=== PATIENT | female | born 1955 | race Caucasian/White ===

== ENCOUNTER → 2016-08-08 | Day surgery (SDC) | payer OTHER ==
--- NOTE | 2016-08-09 13:39 | PATH ---
Cytology Non-Gynecological Report Patient Name: SONY CLAIRE [facility]. Rec. #: [id number] /Age/Gender: 1955 (Age: 61) / F Account: [id number] Location: RADIOLOGY Taken: 08/08/2016 Received: 08/08/2016 Reported: 08/09/2016 Physicians: Jimmy Griffin M.D. Specimen(s) Received LEFT THYROID FNA Clinical History Left thyroid nodule, 1.64 x 1.08 x 1.36 cm Final Diagnosis THYROID GLAND, LEFT LOBE, US GUIDED FINE ASPIRATION BIOPSY: SATISFACTORY FOR EVALUATION. NO MALIGNANCY WAS IDENTIFIED. SCATTERED CLUSTERS OF BLAND APPEARING FOLLICULAR EPITHELIAL CELLS, SUGGESTIVE OF NODULAR GOITER (BETHESDA CATEGORY II, BENIGN), SEE COMMENT. Comment: The smears show scattered clusters of bland appearing follicular epithelial cells some with Hurthle cell (oncocytic) change. Colloid is present. Electronically Signed Dmitriy Freeman M.D. Gross Description Received are four air dried smears, three smears in 95% alcohol, and 20 cc of bloody fluid in formalin. Four diff-quik stained slides, three Pap stained slides and one cell block are made.
== END | disposition home or self-care (01) ==
LOC: JRADIR 08:24
PROVIDERS: ATTEND Internal Medicine Endocrinology, Diabetes & Metabolism
PROC: 0G9G3ZX Drainage of Left Thyroid Gland Lobe, Percutaneous Approach, Diagnostic (ICD-10-PCS; principal; 2016-08-08)
PROC: BG44ZZZ Ultrasonography of Thyroid Gland (ICD-10-PCS; 2016-08-08)
DX: E04.1 Nontoxic single thyroid nodule (principal)
CPT/HCPCS: 10022; 76536-TC; 76942; 88173; 88305-TC

== ENCOUNTER 2016-08-18 22:27 | Emergency (ER) | payer OTHER ==
[2016-08-18 22:35] VITALS: TEMP 97.8; BMI 36.0
[2016-08-18] MEDS ORDERED: ACETAMINOPHEN 1000 MG/100 ML VIAL (NON FORMULARY) IVPB ONE (23:23)
--- NOTE | 2016-08-18 23:29 | PDOC ---
History of Present Illness - History of Present Illness Initial Comments: 08/18/16 23:58 Patient is a 61 year old female with significant medical hx of DM, HTN, HLD, obstructive sleep apnea, hypothyroidism, and cervical arthritis who is presenting to the ED with one week of intermittent chest pain, shortness of breath, and neck pain. Patient complains of intermittent chest pain that comes on for a few seconds at a time and is characterized as sharp. Her shortness of breath accompanies her chest pain but only occurs on occasion. The patient notes that her symptoms are not exertional. The patient also complains of bilateral paracervical spinal neck pain with radiation to her posterior head. The patient reports that her pain worsens with movement of her neck; she has been taking Tylenol with reported pain relief. Patient also complains of three days of increasing edema to her hands and lower extremities bilaterally. The patient recently saw her PMD and was started on 20 mg of Lasix. The patient denies fever, chills, nausea, vomiting, cough, diaphoresis, and difficulty urinating. <Daisha Whitmore - Last Filed: 08/19/16 01:26> - General History Source: Patient, Old Records Exam Limitations: No Limitations <Hunter Brooks - Last Filed: 08/19/16 01:58> - General Chief Complaint: Headache Stated Complaint: NAUSEA/HEADACHES Time Seen by Provider: 08/18/16 22:57 Past History <Daisha Whitmore - Last Filed: 08/19/16 01:26> - Past Medical History Anemia: No Asthma: No Cancer: No Cardiac Disorders: No CVA: No COPD: No CHF: No Dementia: No Diabetes: Yes (NIDDM) GI Disorders: No Disorders: Yes (STRESS INCONTINENCE) HTN: Yes Hypercholesterolemia: Yes Liver Disease: No Psychiatric Problems: Yes (Depression) Suicide Attempt (Hx): No Seizures: No Thyroid Disease: Yes (HYPOTHYROID) - Surgical History Abdominal Surgery: No Appendectomy: Yes Cardiac Surgery: No Cholecystectomy: No Lung Surgery: No Neurologic Surgery: No Orthopedic Surgery: No - Immunization History Immunization Up to Date: Yes - Psycho/Social/Smoking Cessation Hx Anxiety: Yes Suicidal Ideation: No Smoking Status: No Smoking History: Never smoked Have you smoked in the past 12 months: No Number of Cigarettes Smoked Daily: 0 Hx Alcohol Use: No Drug/Substance Use Hx: No Substance Use Type: None Hx Substance Use Treatment: No <Hunter Brooks - Last Filed: 08/19/16 01:58> - Past Medical History Allergies/Adverse Reactions: Allergies Allergy/AdvReac Type Severity Reaction Status Date / Time No Allergy Information Allergy Verified 08/18/16 22:33 Available Home Medications: Ambulatory Orders Meclizine HCl [Antivert -] 12.5 mg PO HS PRN 11/24/13 Diazepam [Valium] 5 mg PO TID PRN #6 tablet 08/13/15 Levothyroxine [Synthroid -] 50 mcg PO DAILY 08/13/15 Losartan 50Mg/Hctz 12.5MG [Hyzaar -] 1 tab PO DAILY 08/13/15 Metformin HCl 500 mg PO DAILY 08/13/15 Cyclobenzaprine HCl [Flexeril -] 10 mg PO TID #21 tablet 03/13/16 Ibuprofen [Motrin -] 600 mg PO TID #21 tablet 03/13/16 Review of Systems - Review of Systems Comments:: 08/18/16 23:59 GENERAL/CONSTITUTIONAL: No fever or chills. No weakness. HEAD, EYES, EARS, NOSE AND THROAT: No change in vision. No ear pain or discharge. No sore throat. CARDIOVASCULAR: Chest pain and shortness of breath. RESPIRATORY: No cough, wheezing, or hemoptysis. GASTROINTESTINAL: No nausea, vomiting, diarrhea or constipation. GENITOURINARY: No dysuria, frequency, or change in urination. MUSCULOSKELETAL: Neck pain, lower extremity swelling, hand swelling. No back pain. SKIN: No rash NEUROLOGIC: No headache, vertigo, loss of consciousness, or change in strength/ sensation. <Daisha Whitmore - Last Filed: 08/19/16 01:26> *Physical Exam - Vital Signs Last Vital Signs Temp Pulse Resp BP Pulse Ox 97.8 F 83 16 143/86 97 08/18/16 22:33 08/18/16 22:33 08/18/16 22:33 08/18/16 22:33 08/18/16 22:33 - Physical Exam Comments: 08/19/16 00:00 GENERAL: Awake, alert, and fully oriented, in no acute distress HEAD: No signs of trauma EYES: PERRLA, EOMI, sclera anicteric, conjunctiva clear ENT: Auricles normal inspection, hearing grossly normal, nares patent, oropharynx clear without exudates. Moist mucosa NECK: Normal ROM, supple, no lymphadenopathy, JVD, or masses LUNGS: Breath sounds equal, clear to auscultation bilaterally. No wheezes, and no crackles HEART: Regular rate and rhythm, normal S1 and S2, no murmurs, rubs or gallops ABDOMEN: Soft, nontender, normoactive bowel sounds. No guarding, no rebound. No masses EXTREMITIES: Trace pedal edema bilaterally and trace edema upper extremities to the hands. Normal range of motion. No clubbing or cyanosis. No cords, erythema, or tenderness MUSCULOSKELETAL: Reproducible tenderness on palpation to the bilateral paraspinal cervical muscles. NEUROLOGICAL: Cranial nerves II through XII grossly intact. Normal speech, normal gait SKIN: Warm, Dry, normal turgor, no rashes or lesions noted. ENDOCRINE: No increased thirst. No abnormal weight change. HEMATOLOGIC/LYMPHATIC: No anemia, easy bleeding, or history of blood clots. ALLERGIC/IMMUNOLOGIC: No hives or skin allergy. <Daisha Whitmore - Last Filed: 08/19/16 01:26> - Vital Signs Last Vital Signs Temp Pulse Resp BP Pulse Ox 97.8 F 83 16 143/86 97 08/18/16 22:33 08/18/16 22:33 08/18/16 22:33 08/18/16 22:33 08/18/16 22:33 <Hunter Brooks - Last Filed: 08/19/16 01:58> Heart Score/ECG Review - History History: Slightly suspicious - Electrocardiogram EKG: Non specific repolarization disturbance - Age Age: 45-65 - Risk Factors Based on the list above the patient has:: >/=3 risk factors or Hx atherosclerotic disease - Troponin Troponin: </= normal limit - Score Heart Score - Total: 4 #1 ECG reviewed & interpreted by me at: 01:30 08/19/16 01:35 NSR 62, 1st degree AV block, LVH, left axis deviation, no std/caroline, QTC 434 msec , unchanged from prior ECG <Hunter Brooks - Last Filed: 08/19/16 01:58> ED Treatment Course - LABORATORY CBC & Chemistry Diagram: 08/18/16 23:50 08/18/16 23:50 - RADIOLOGY Radiograph Interpretation: 08/19/16 01:26 Bellows Tester: ([email or web address]) Report Date: 08/19/2016 00:05:00 Report Status: Preliminary Begin of Report Content Referring Physician: Hunter Brooks Patient Name: Lisa Rush THIS IS A PRELIMINARY REPORT FROM IMAGING [facility]RAW[facility] EXAM: X-ray chest IMAGES: 2 INDICATION: Intermittent chest pain DATE OF SERVICE: 2016-08-19 00:05:46.0 COMPARISON: none FINDINGS: There is mild left ventricular hypertrophy. Lungs are clear. No pleural effusion. IMPRESSION: Mild left ventricular hypertrophy. THIS DOCUMENT HAS BEEN ELECTRONICALLY SIGNED Alireza Ramirez MD 08/19/2016 01:11 CHRIS Marquez Please call Imaging Pmo Project Manager [phone] ([phone]) with questions. End of Report Content <Daisha Whitmore - Last Filed: 08/19/16 01:26> - LABORATORY CBC & Chemistry Diagram: 08/18/16 23:50 08/18/16 23:50 - RADIOLOGY Radiology Studies Ordered: Category Date Time Status CHEST X-RAY PORTABLE* [RAD] Stat Radiology 08/18/16 23:23 Ordered <Hunter Brooks - Last Filed: 08/19/16 01:58> Medical Decision Making - Medical Decision Making 08/18/16 23:28 A portion of this note was documented by [employer] under my direction. I have reviewed the details of the note, within reason, and agree with the documentation with the following case summary and management plan written by me. Patient treated in the ED. Nursing notes are reviewed and incorporated into the medical decision-making. Vital signs reviewed. Peripheral IV access obtained by the nurse, laboratory studies are drawn and sent, reviewed and interpreted by myself. Vital Signs Temp Pulse Resp BP Pulse Ox 97.8 F 83 16 143/86 97 08/18/16 22:33 08/18/16 22:33 08/18/16 22:33 08/18/16 22:33 08/18/16 22:33 61 year old male with past medical history of hypertension, diabetes, hyperlipidemia, depression, arthritis of the neck and hypothyroidism presents to the emergency department for similar symptoms as an March 2016. The patient has had approximately one week of few seconds of intermittent sharp chest pain with occasional shortness of breath. She has reproducible bilateral paracervical spinal neck pain that radiates to her posterior head. Patient reports that this feels somewhat like her migraines but worsened with flexion and movement of her neck. She has been taking Tylenol which relieves the pain. The symptoms are not exertional. She has noticed in last 3 days that her lower extremities were getting more edematous as well as her hands. She has saw her PMD Dr. Alexandre started her on 20 mg of Lasix. She is unsure if this is improved her symptoms. She denies any fevers or chills or cough or vomiting. The patient's chest pain is very atypical for acute coronary syndrome. We'll however obtain a chest x-ray, EKG, labs, troponin and BNP. I suspect that this is more muscular skeletal given the reproducible nature of the neck and chest discomfort. We'll give IV Tylenol and reassess. I have very little concerns for acute intracranial pathology. Will defer on head CT at this time. 08/19/16 01:35 Chest xray reviewed by me and imaging traditional maori health practitioner, mild left ventricular hypertrophy. CBC, BMP 08/18/16 23:50 08/18/16 23:50 CMP Sodium 141 mmol/L (136-145) 08/18/16 23:50 Potassium 4.4 mmol/L (3.5-5.1) 08/18/16 23:50 Chloride 103 mmol/L (98-107) 08/18/16 23:50 Carbon Dioxide 26 mmol/L (21-32) 08/18/16 23:50 Anion Gap 12 (8-16) 08/18/16 23:50 BUN 12 mg/dL (7-18) 08/18/16 23:50 Creatinine 0.8 mg/dL (0.55-1.02) 08/18/16 23:50 Creat Clearance w eGFR > 60 (>60) 08/18/16 23:50 Random Glucose 145 mg/dL (74-106) H D 08/18/16 23:50 Calcium 8.9 mg/dL (8.5-10.1) 08/18/16 23:50 Total Bilirubin 0.7 mg/dL (0.2-1.0) D 08/18/16 23:50 AST 35 U/L (15-37) D 08/18/16 23:50 ALT 31 U/L (12-78) 08/18/16 23:50 Alkaline Phosphatase 97 U/L (45-117) 08/18/16 23:50 Creatine Kinase 300 IU/L (26-192) H D 08/18/16 23:50 CK-MB (CK-2) 2.266 ng/ml (0.5-3.6) 08/18/16 23:50 Troponin I < 0.02 ng/ml (0.00-0.05) 08/18/16 23:50 B-Natriuretic Peptide 12.46 pg/ml (5-125) 08/18/16 23:50 Total Protein 7.7 g/dl (6.4-8.2) 08/18/16 23:50 Albumin 3.9 g/dl (3.4-5.0) 08/18/16 23:50 Labs reviewed. Unremarkable. Patient feels reassured. Will give a copy of her labs. I still suspect atypical chest pain and MSK pain. Supportive care and follow up with [facility] physician. I discussed the physical exam findings, ancillary test results and final diagnoses with the patient. I answered all of the patient's questions. The patient was satisfied with the care received and felt comfortable with the discharge plan and treatment plan. The patient will call their primary care physician within 24 hours to arrange follow-up and will return to the Emergency Department with any new, persistant or worsening symptoms. <Hunter Brooks - Last Filed: 08/19/16 01:58> *DC/Admit/Observation/Transfer - Attestations Scribe Attestion: 08/19/16 00:01 Documentation prepared by Daisha Whitmore, acting as medical billing specialist for Hunter Brooks MD. <Daisha Whitmore - Last Filed: 08/19/16 01:26> - Discharge Dispostion Admit: No <Hunter Brooks - Last Filed: 08/19/16 01:58> Diagnosis at time of Disposition: Atypical chest pain, Neck pain - Discharge Dispostion Disposition: HOME Condition at time of disposition: Improved - Referrals Referrals: Felicita Harrington MD [Primary Care Provider] - - Patient Instructions Printed Discharge Instructions: DI for Atypical Chest Pain, DI for Neck Pain Additional Instructions: Take 650 mg tylenol every 4 hours as needed for pain. Please follow up with your doctor. Please make sure you get your echocardiogram.
[2016-08-18] MEDS ORDERED: ACETAMINOPHEN INJECTION 100 ML IVPB ONE (23:31)
[2016-08-19 00:06] LABS: BASOPHIL 1.3 % (0-2.0); EOSINOPHIL 3.5 % (0-4.5); MCH 27.4 pg (25.7-33.7); MCHC 33.5 g/dl (32.0-36.0); MEAN CELL VOLUME 81.8 fl (80-96); MEAN PLT VOLUME 8.9 fl (7.5-11.1); PLATELET COUNT 326 K/MM3 (134-434); RDW 14.4 % (11.6-15.6); WHITE BLOOD COUNT 9.1 K/mm3 (4.0-10.0)
[2016-08-19 00:27] LABS: ALBUMIN 3.9 g/dl (3.4-5.0); ANION GAP 12 (8-16); BILIRUBIN,TOTAL 0.7 mg/dL (0.2-1.0); CALCIUM 8.9 mg/dL (8.5-10.1); CO2 26 mmol/L (21-32); CREATININE 0.8 mg/dL (0.55-1.02); GLUCOSE,RANDOM 145 mg/dL (74-106); SGPT/ALT 31 U/L (12-78); TOT PROT 7.7 g/dl (6.4-8.2)
[2016-08-19 00:30] LABS: ALK PHOS 97 U/L (45-117); TROPONIN I < 0.02 ng/ml (0.00-0.05)
[2016-08-19 00:32] LABS: PLATELET COMMENT2 NO CLOTTING DETECTED; PLATELET COMMENT3 MOD LARGE PLTS; PLATELET ESTIMATE ADEQUATE (NORMAL)
[2016-08-19 00:33] LABS: SGOT/AST 35 U/L (15-37)
[2016-08-19] MEDS ORDERED: KETOROLAC TROMETHAMINE 30 MG/1 ML VIAL IVPUSH ONE (01:03)
[2016-08-19] MEDS ORDERED: KETOROLAC TROMETHAMINE 30 MG/1 ML VIAL ONE (01:14)
[2016-08-19] MEDS ORDERED: LORAZEPAM CARPU-JECT 2 MG/ML DISP.SYRIN IVPUSH ONE (01:37)
[2016-08-19 03:14] VITALS: BP 138/79; PULSE 81
--- NOTE | 2016-08-19 09:35 | EKG ---
Test Reason : Blood Pressure : / mmHG Vent. Rate : 062 BPM Atrial Rate : 062 BPM P-R Int : 200 ms QRS Dur : 132 ms QT Int : 428 ms P-R-T Axes : 025 -56 032 degrees QTc Int : 434 ms NORMAL SINUS RHYTHM LEFT AXIS DEVIATION LEFT VENTRICULAR HYPERTROPHY WITH QRS WIDENING CANNOT RULE OUT SEPTAL INFARCT (CITED ON OR BEFORE 21-MAR-2015) ABNORMAL ECG WHEN COMPARED WITH ECG OF 13-MAR-2016 12:14, NO SIGNIFICANT CHANGE WAS FOUND Confirmed by JA LI MD ([id number]) on 08/19/2016 9:35:13 AM Referred By: Confirmed By:JA LI MD
== END 2016-08-19 03:13 | disposition home or self-care (01) ==
LOC: JER 22:27
PROC: 3E033NZ Introduction of Analgesics, Hypnotics, Sedatives into Peripheral Vein, Percutaneous Approach (ICD-10-PCS; principal; 2016-08-18)
PROC: 3E0333Z Introduction of Anti-inflammatory into Peripheral Vein, Percutaneous Approach (ICD-10-PCS; 2016-08-18)
DX: M54.2 Cervicalgia (principal); M47.812 Spondylosis without myelopathy or radiculopathy, cervical region; I10 Essential (primary) hypertension; E11.9 Type 2 diabetes mellitus without complications; Z79.84 Long term (current) use of oral hypoglycemic drugs; D32.9 Benign neoplasm of meninges, unspecified; E78.00 Pure hypercholesterolemia, unspecified
CPT/HCPCS: 36415; 80053; 82550; 82553; 83880; 84484; 85025; 93005; 93010; 99283-25

== ENCOUNTER 2017-04-07 11:46 | Emergency (ER) | payer OTHER ==
[2017-04-07 12:08] VITALS: BMI 34.9
--- NOTE | 2017-04-07 13:05 | PDOC ---
Attending Attestation - Resident Resident Name: Tutu Villar - ED Attending Attestation I have performed the following: I have examined & evaluated the patient, The case was reviewed & discussed with the resident, I agree w/resident's findings & plan, Exceptions are as noted - HPI HPI: 04/07/17 13:07 62y F htn, hl presents with abdominal pain and vomiting. Abd pain x 15 days, s/ p outpatient US that was unremarkable. Pain persistent christiano tmoved to the lower abdomen associated with 1 episode of nbnb vomiting today. prior history of UTIs. abd pain is diffuse, nonradiating. denies any urinary sypmtoms. + hysterectomy, oopherectomy. exam noted for diffuse abd tenderness zayda in the lower abd w/o rebound/guarding differential includes possible UTI, consider possible obstruction, consider acs - will obtain ekg, trop woill obtain blood work, ua, will treat sypmtatically if persistent pain consider CT - Physicial Exam PE: 04/09/17 14:57 see above - Medical Decision Making 04/07/17 17:[address] results 04/07/17 19:03 ct negative for acute pathology pt discharged with pmd fu reutrn precautions were discussed Heart Score/ECG Review - ECG Impressions Comment:: 04/07/17 15:08 Twelve-lead EKG was performed and reviewed by me. There is normal sinus rhythm with a normal rate. rate of 69 Left axis deviation abnormal r wave progression
[2017-04-07] MEDS ORDERED: FAMOTIDINE 20 MG/50 ML IVPB 50 ML IVPB ONE ×2 (13:12→13:16)
[2017-04-07] MEDS ORDERED: ONDANSETRON 4 MG/2 ML VIAL IVPUSH ONE (13:12)
[2017-04-07] MEDS ORDERED: SODIUM CHLORIDE 1,000 ML IV STA (13:12)
[2017-04-07] MEDS ORDERED: ONDANSETRON 4 MG/2 ML VIAL ONE (13:15)
[2017-04-07 13:28] LABS: URINE APPEARANCE SLCLOUDY; URINE BILIRUBIN NEGATIVE (NEGATIVE); URINE BLOOD NEGATIVE (NEGATIVE); URINE COLOR YELLOW; URINE GLUCOSE (UA) NEGATIVE (NEGATIVE); URINE KETONE TRACE (NEGATIVE); URINE NITRITE NEGATIVE (NEGATIVE); URINE UROBILINOGEN NEGATIVE mg/dL (0.2-1.0)
[2017-04-07 13:29] LABS: BASOPHIL 0.9 % (0-2.0); EOSINOPHIL 0.7 % (0-4.5); MCH 26.9 pg (25.7-33.7); MCHC 32.9 g/dl (32.0-36.0); MEAN CELL VOLUME 81.8 fl (80-96); MEAN PLT VOLUME 8.8 fl (7.5-11.1); NEUTROPHILS 72.8 % (42.8-82.8); PLATELET COUNT 268 K/MM3 (134-434); RDW 14.4 % (11.6-15.6); URINE PROTEIN 1+ (NEGATIVE); WHITE BLOOD COUNT 6.2 K/mm3 (4.0-10.0)
--- NOTE | 2017-04-07 13:36 | PDOC ---
History of Present Illness - General Chief Complaint: Pain, Acute Stated Complaint: VOMITING Time Seen by Provider: 04/07/17 12:27 - History of Present Illness Initial Comments: 04/07/17 13:44 The patient is a 62 year old female with a history of DM, HTN, HLD, obstructive sleep apnea, hypothyroidism, and cervical arthritis who presents for evaluation of abdominal pain, nausea, and vomiting. The patient reports a several week history of poorly described upper abdominal pain for which she presented to her primary care provider. She had a gallbladder performed which did not show any evidence of cholecystitis or gallstones. She states that she began experiencing poorly described sharp lower abdominal pain today as well as 1 episode of non-bilious, non-bloody vomiting prompting her presentation to the ED today. She denies fevers, chill, chest pain, SOB, or changes with urination or bowel movements. She reports a history of a hysterectomy, oopherectomy, and bladder lift as well. Past History - Past Medical History Allergies/Adverse Reactions: Allergies Allergy/AdvReac Type Severity Reaction Status Date / Time No Allergy Information Allergy Verified 04/07/17 12:08 Available Home Medications: Ambulatory Orders Levothyroxine [Synthroid -] 50 mcg PO DAILY 08/13/15 Losartan 50Mg/Hctz 12.5MG [Hyzaar -] 1 tab PO DAILY 08/13/15 Metformin HCl 500 mg PO DAILY 08/13/15 Ibuprofen [Motrin -] 600 mg PO TID #21 tablet 03/13/16 Anemia: No Asthma: No Cancer: No Cardiac Disorders: No CVA: No COPD: No CHF: No Dementia: No Diabetes: Yes (NIDDM) GI Disorders: No Disorders: Yes (STRESS INCONTINENCE) HTN: Yes Hypercholesterolemia: Yes Liver Disease: No Psychiatric Problems: Yes (Depression) Seizures: No Thyroid Disease: Yes (HYPOTHYROID) - Surgical History Abdominal Surgery: No Appendectomy: Yes Cardiac Surgery: No Cholecystectomy: No Lung Surgery: No Neurologic Surgery: No Orthopedic Surgery: No - Immunization History Immunization Up to Date: Yes - Suicide/Smoking/Psychosocial Hx Smoking Status: No Smoking History: Never smoked Have you smoked in the past 12 months: No Number of Cigarettes Smoked Daily: 0 Hx Alcohol Use: No Drug/Substance Use Hx: No Substance Use Type: None Hx Substance Use Treatment: No Review of Systems - Review of Systems Comments:: 04/07/17 13:50 Constitutional: No fevers, chills, fatigue, malaise HEENT: No Rhinorrhea, nasal congestion, Cardiovascular: No chest pain, syncope, palpitations, lightheadedness Respiratory: No Cough, SOB, Hemoptysis, Gastrointestinal: Abdominal pain, nausea, vomiting. No Constipation, Diarrhea, Melena Genitourinary: No Dysuria, Frequency, Urgency, Hesitancy, Hematuria, Flank pain Musculoskeletal: No Myalgia, arthralgia Skin: No rashes, bruising, pallor Neurologic: Headache. No Dizziness, Numbness, Weakness, or Tingling Psychiatric: No Hallucinations. No SI or HI *Physical Exam - Vital Signs Last Vital Signs Temp Pulse Resp BP Pulse Ox 98.1 F 82 16 132/80 97 04/07/17 12:06 04/07/17 12:06 04/07/17 12:06 04/07/17 12:06 04/07/17 12:06 - Physical Exam Comments: 04/07/17 13:52 General Appearance: Nourished. No Apparent Distress HEENT: EOMI, ANSON. No Pharyngeal Erythema, Tonsillar Exudate, Tonsillar Erythema Neck: No Cervical Lymphadenopathy Respiratory/Chest: Lungs Clear, Normal Breath Sounds. No Crackles, Rales, Rhonchi, Wheezing Cardiovascular: Regular Rhythm, Regular Rate. No Murmur, Gallops, Rubs Gastrointestinal/Abdominal: Normal Bowel Sounds, Soft. Diffuse tenderness to palpation. No Guarding, Rebound, Musculoskeletal: No CVA Tenderness Extremity: Normal Capillary Refill Integumentary: Normal Color, Dry, Warm Neurologic: Fully Oriented, Alert, Normal Mood/Affect, Normal Response, ED Treatment Course - LABORATORY CBC & Chemistry Diagram: 04/07/17 13:12 04/07/17 14:13 - ADDITIONAL ORDERS Additional order review: Laboratory Results 04/07/17 13:12 Urine Color Yellow Urine Appearance Slcloudy Urine pH 5.0 D Ur Specific [place] 1.020 Urine Protein 1+ H Urine Glucose (UA) Negative Urine Ketones Trace H Urine Blood Negative Urine Nitrite Negative Urine Bilirubin Negative Urine Urobilinogen Negative - RADIOLOGY Radiology Studies Ordered: Category Date Time Status ABDOMEN & PELVIS CT WITH CONTR [CT] Stat CT Scan 04/07/17 13:12 Ordered - Medications Given in the ED: ED Medications Discontinued Medications Generic Name Dose Route Start Last Admin Trade Name Freq PRN Reason Stop Dose Admin Ondansetron HCl 4 mg 04/07/17 13:12 04/07/17 13:23 Zofran Injection IVPUSH 04/07/17 13:13 4 mg ONCE ONE Administration Medical Decision Making - Medical Decision Making 04/07/17 13:53 The patient is a 62 year old female with a history of DM, HTN, HLD, obstructive sleep apnea, hypothyroidism, and cervical arthritis who presents for evaluation of abdominal pain, nausea, and vomiting. Differential includes but is not limited to: Gastritis, pancreatitis, colitis, acs, obstruction, cholecystits, infectious, metabolic derangement. Given the patient's negative gallbladder US , it is unlikely her symptoms are due to a cholecystits. The patient appears fairly clinically well making us less concerned for obstruction, however reasonable to evaluate for given her history of abdominal surgery and vomiting. Her symptoms are likely due to a gastritis or UTI given her diffuse symptoms. We will obtain a cbc, cmp, troponin, UA, lipase for further evaluation. We will also obtain a ct abdomen/pelvis to evaluate for other etiologies. We will continue to monitor and reassess. 04/07/17 18:48 cbc, cmp, troponin, UA and lipase are unremarkable. The patient reports significant improvement in her symptoms. She is pending official ct abdomen/ pelvis read. She will likely be discharged home after ct read given her significant improvement in her symptoms and normal lab values with pcp follow up. 04/07/17 18:53 CT abdomen is negative for acute processes as read by our radiologist. We discussed the results with the patient and are comfortable discharging her at this time with pcp follow up. The patient voiced understanding and is agreeable with the plan. *DC/Admit/Observation/Transfer Diagnosis at time of Disposition: Gastritis Qualifiers: Gastritis type: unspecified gastritis Chronicity: unspecified Gastritis bleeding: presence of bleeding unspecified Qualified Code(s): K29.70 - Gastritis , unspecified, without bleeding - Discharge Dispostion Disposition: HOME Condition at time of disposition: Improved Admit: No - Referrals Referrals: Felicita Harrington MD [Primary Care Provider] - - Patient Instructions Printed Discharge Instructions: DI for Gastritis Additional Instructions: Please return to the ER if you experience concerning or worsening symptoms including fevers, chills, vomiting, or worsening abdominal pain. Your lab results were normal here in the ER. Your symptoms are likely due to gastritis. Please call to schedule a follow up appointment with your primary care provider in 4-5 days to discuss your ER visit.
[2017-04-07 13:45] LABS: INR 1.05 (0.82-1.09); PROTHROMBIN TIME (PATIENT) 11.9 SEC (9.98-11.88)
[2017-04-07 13:47] LABS: ACTIVATED PTT 29.5 SECONDS (26.9-34.4)
[2017-04-07 13:58] LABS: URINE MUCUS RARE
[2017-04-07 15:25] LABS: ALBUMIN 4.2 g/dl (3.4-5.0); ANION GAP 8 (8-16); BILIRUBIN,TOTAL 1.2 mg/dL (0.2-1.0); CALCIUM 8.6 mg/dL (8.5-10.1); CO2 24 mmol/L (21-32); CREATININE 1.1 mg/dL (0.55-1.02); GLUCOSE,RANDOM 104 mg/dL (74-106); SGOT/AST 32 U/L (15-37); SGPT/ALT 36 U/L (12-78); TOT PROT 8.2 g/dl (6.4-8.2)
[2017-04-07 15:28] LABS: ALK PHOS 111 U/L (45-117); CPK 415 IU/L (26-192); TROPONIN I < 0.02 ng/ml (0.00-0.05)
[2017-04-07 19:05] VITALS: BP 130/75; PULSE 79; TEMP 98.4
[2017-04-07 19:05] LABS: URINE LEUK ESTERASE Negative (NEGATIVE)
[2017-04-08 00:08] LABS: URINE BACTERIA RARE /hpf (NONE SEEN); URINE HYALINE CAST 4 /lpf
[2017-04-08 01:09] LABS: URINE RBC 9; URINE WBC 3
--- NOTE | 2017-04-11 09:09 | EKG ---
Test Reason : Blood Pressure : / mmHG Vent. Rate : 066 BPM Atrial Rate : 066 BPM P-R Int : 196 ms QRS Dur : 128 ms QT Int : 448 ms P-R-T Axes : 024 -49 020 degrees QTc Int : 469 ms NORMAL SINUS RHYTHM POSSIBLE LEFT ATRIAL ENLARGEMENT LEFT AXIS DEVIATION NON-SPECIFIC INTRA-VENTRICULAR CONDUCTION DELAY LEFT VENTRICULAR HYPERTROPHY WITH QRS WIDENING SEPTAL INFARCT (CITED ON OR BEFORE 21-MAR-2015) ABNORMAL ECG WHEN COMPARED WITH ECG OF 07-APR-2017 13:40, NONSPECIFIC T WAVE ABNORMALITY, IMPROVED IN INFERIOR LEADS Confirmed by KEY REESE MD ([id number]) on 04/11/2017 9:08:56 AM Referred By: Confirmed By:KEY REESE MD
--- NOTE | 2017-04-11 09:12 | EKG ---
Test Reason : Blood Pressure : / mmHG Vent. Rate : 069 BPM Atrial Rate : 069 BPM P-R Int : 204 ms QRS Dur : 126 ms QT Int : 412 ms P-R-T Axes : 023 -52 -14 degrees QTc Int : 441 ms NORMAL SINUS RHYTHM WITH 1ST DEGREE A-V BLOCK (BORDERLINE) LEFT AXIS DEVIATION NON-SPECIFIC INTRA-VENTRICULAR CONDUCTION DELAY LEFT VENTRICULAR HYPERTROPHY WITH QRS WIDENING SEPTAL INFARCT (CITED ON OR BEFORE 21-MAR-2015) T-WAVE INVERSION IN INFEROLATERAL LEADS ABNORMAL ECG WHEN COMPARED WITH ECG OF 19-AUG-2016 01:28, T WAVE INVERSION NOW EVIDENT IN INFEROLATERAL LEADS Confirmed by MARY ANN FARLEY, KEY ([id number]) on 04/11/2017 9:11:49 AM Referred By: Confirmed By:KEY REESE MD
== END 2017-04-07 19:05 | disposition home or self-care (01) ==
LOC: JER 11:46
PROC: 3E033GC Introduction of Other Therapeutic Substance into Peripheral Vein, Percutaneous Approach (ICD-10-PCS; principal; 2017-04-07)
PROC: 3E0337Z Introduction of Electrolytic and Water Balance Substance into Peripheral Vein, Percutaneous Approach (ICD-10-PCS; 2017-04-07)
DX: K29.70 Gastritis, unspecified, without bleeding (principal); I10 Essential (primary) hypertension; E11.9 Type 2 diabetes mellitus without complications; E78.00 Pure hypercholesterolemia, unspecified; E03.9 Hypothyroidism, unspecified
CPT/HCPCS: 36415; 74176-TC; 80053; 81003; 81015; 82550; 82553; 83690; 84484; 85025; 85610; 85730; 93005; 93010; 96361; 96365; 96375; 99282-25; Q9967